=== PATIENT | female | born 1970 | race Caucasian/White ===

== ENCOUNTER 2017-11-16 13:45 | Day surgery (SDC) | payer OTHER ==
[2017-11-16] MEDS ORDERED: LIDOCAINE 4% SOLUTION 50 ML BTL (14:37)
[2017-11-16] MEDS ORDERED: MEPERIDINE 50 MG INJ (15:25)
[2017-11-16] MEDS ORDERED: FENTAnyl 50 MCG/ML VIAL (15:25)
[2017-11-16] MEDS ORDERED: MIDAZOLAM 1 MG/ML 2 ML INJ ×3 (15:25)
== END 2017-11-16 17:21 | disposition home or self-care (01) ==
LOC: GIL 13:45
DX: Z12.11 Encounter for screening for malignant neoplasm of colon (principal); D50.9 Iron deficiency anemia, unspecified; K20.9 Esophagitis, unspecified; K29.70 Gastritis, unspecified, without bleeding; E78.5 Hyperlipidemia, unspecified
CPT/HCPCS: 43239; 84703; 88305; 88312; 88313